=== PATIENT | female | born 1940 | race Caucasian/White ===

== ENCOUNTER 2017-03-31 22:37 | Emergency (ER) | payer OTHER ==
[~2017-03-31] VITALS: Ht 152.4 cm; Wt 44.6 kg
[~2017-03-31 22:37] MED LIST: ADVIL200 MG PO; AMLODIPINE BES2.5 MG PO; LISINOPRIL40 MG PO; METOPROLOL SUCC50 MG PO; TOPROL XL100 MG PO; TYLENOL ARTHRI650 MG PO
[2017-03-31 23:22] LABS: HEMATOCRIT 35.4 % (36.0-46.0); MCH 30.6 PG (29.0-34.0); MCHC 33.1 G/DL (30.0-36.0); MCV 92.7 FL (83-99); MEAN PLAT.VOLUME 9.6 uM^3 (9.5-12.4); PLATELET COUNT 232 K/uL (156-360); RBC DIS.WIDTH-CV 13.1 % (11.8-14.6); RED BLOOD COUNT 3.82 M/uL (3.80-5.20); WHITE BLOOD COUNT 6.3 K/uL (4.1-10.2)
[2017-03-31 23:33] LABS: CHLORIDE 105 mEq/L (99-109); POTASSIUM 3.6 mEq/L (3.7-5.4); SODIUM 136 mEq/L (136-147)
[2017-03-31 23:36] LABS: GLUCOSE 126 mg/dL (70-99)
[2017-03-31 23:37] LABS: ANION GAP 6 MEQ/L (2-14); TOTAL BILIRUBIN 0.5 mg/dL (0.0-1.0)
[2017-03-31 23:39] LABS: ALKALINE PHOSPHATASE 375 IU/L (3-129); GFR ESTIMATE (CALCULATED) > 59 mL/min/
[2017-03-31 23:40] LABS: UREA NITROGEN (BUN) 28 mg/dL (9-23)
[2017-03-31 23:42] LABS: TROP-I INTERPRETATION NEGATIVE; TROPONIN-I 0.01 ng/mL (0.0-0.30)
[2017-03-31 23:43] LABS: LIPASE 48 U/L (1.0-51.0)
[2017-04-01 00:08] LABS: ADD MIUA? YES; BILIRUBIN NEGATIVE; BLOOD LARGE; COLOR YELLOW ((YELLOW)); GLUCOSE (STRIP) NEGATIVE; KETONES NEGATIVE; LEUKOCYTES SMALL; NITRITE NEGATIVE; PROTEIN (STRIP) 100; UROBILINOGEN 0.2 MG/DL (0.2-1.0)
[2017-04-01 00:30] LABS: RED BLOOD CELLS 40-50 /HPF (0-5)
[2017-04-01 00:31] LABS: BACTERIA NONE SEEN /HPF; CRYSTALS PRESENT; EPITHELIAL CELLS 1+ /HPF; MUCUS 1+ /LPF; UCUL ADDED? NO
[2017-04-01 00:32] LABS: CALCIUM OXALATE CRYSTALS 1+ /HPF; CASTS PRESENT /LPF; HYALINE CASTS 0-5 /LPF
[2017-04-01 01:26] VITALS: BP 153/70
== END 2017-04-01 01:28 | disposition home or self-care (01) ==
LOC: EME → EDBD 22:37 → EME 04-01 01:28
PROVIDERS: Emergency Medicine
DX: E86.0 Dehydration (principal); R31.9 Hematuria, unspecified; R07.9 Chest pain, unspecified; I10 Essential (primary) hypertension; Z87.891 Personal history of nicotine dependence
CPT/HCPCS: 80053; 81003; 83690; 84484; 85027; 93005; 99281; 99285; J7030

== ENCOUNTER → 2017-06-04 | Outpatient (CLI) | payer OTHER ==
[~2017-06-04] MED LIST changes: +CARAFATE1 GM PO; +FLAGYL500 MG PO; +METOPROLOL TA37.5 MG PO; +MULTIPLE VITAM1 EACH PO; +NORVASC2.5 MG PO; +OMEPRAZOLE40 M1 PO; +PANTOPRAZOLE SO40 MG PO; +PRINIVIL10 MG PO; +REGLAN5 MG PO; +VITAMIN C1000 MG PO
== END | disposition home or self-care (01) ==
LOC: PICC 10:00
DX: M46.28 Osteomyelitis of vertebra, sacral and sacrococcygeal region (principal)
CPT/HCPCS: 76937; C1769

== ENCOUNTER → 2017-10-27 | Outpatient (CLI) | payer OTHER ==
[~2017-10-27] MED LIST changes: +LOPRESSOR25 MG PO; -METOPROLOL TA37.5 MG PO; +OXAYDO5 MG PO; +PROTONIX40 MG PO
== END | disposition home or self-care (01) ==
LOC: AMB 10:12
DX: L89.152 Pressure ulcer of sacral region, stage 2 (principal); E46 Unspecified protein-calorie malnutrition; M06.9 Rheumatoid arthritis, unspecified; M19.90 Unspecified osteoarthritis, unspecified site; K21.9 Gastro-esophageal reflux disease without esophagitis; I10 Essential (primary) hypertension; R53.81 Other malaise; Z86.19 Personal history of other infectious and parasitic diseases; Z87.19 Personal history of other diseases of the digestive system
CPT/HCPCS: 99213

== ENCOUNTER 2017-11-05 19:49 | Inpatient (IN) | payer OTHER ==
[~2017-11-05] VITALS: Ht 152.4 cm; Wt 40.9 kg
[2017-11-05 20:23] LABS: HEMOGLOBIN 13.4 G/DL (11.9-15.5); MCH 29.9 PG (29.0-34.0); MCHC 33.5 G/DL (30.0-36.0); MCV 89.3 FL (83-99); PLATELET COUNT 245 K/uL (156-360); RBC DIS.WIDTH-CV 14.2 % (11.8-14.6); RBC DIS.WIDTH-SD 46.3 % (39-53); RED BLOOD COUNT 4.48 M/uL (3.80-5.20); WHITE BLOOD COUNT 10.1 K/uL (4.1-10.2)
[2017-11-05 20:32] LABS: CHLORIDE 100 mEq/L (99-109); POTASSIUM 4.1 mEq/L (3.7-5.4); SODIUM 133 mEq/L (136-147)
[2017-11-05 20:34] LABS: GLUCOSE 105 mg/dL (70-99)
[2017-11-05 20:37] LABS: CREATININE 0.7 mg/dL (0.6-1.3); GFR ESTIMATE (CALCULATED) > 59 mL/min/
[2017-11-05 20:38] LABS: UREA NITROGEN (BUN) 25 mg/dL (9-23)
[2017-11-05 20:47] LABS: TROP-I INTERPRETATION NEGATIVE; TROPONIN-I 0.01 ng/mL (0.0-0.30)
[2017-11-05] MEDS ORDERED: AUGMENTIN875 MG PO (23:21)
[2017-11-05] MEDS ORDERED: OXYCODONE H5 MG/5 ML PO (23:26)
[2017-11-06 00:17] VITALS: BP 171/87
[2017-11-06 06:30] LABS: HEMOGLOBIN 12.5 G/DL (11.9-15.5); MCH 29.6 PG (29.0-34.0); MCHC 32.9 G/DL (30.0-36.0); PLATELET COUNT 188 K/uL (156-360); RBC DIS.WIDTH-CV 14.4 % (11.8-14.6); RBC DIS.WIDTH-SD 47.1 % (39-53); RED BLOOD COUNT 4.22 M/uL (3.80-5.20); WHITE BLOOD COUNT 6.4 K/uL (4.1-10.2)
[2017-11-06 06:56] LABS: CHLORIDE 100 MEQ/L (99-109); CREATININE 0.6 MG/DL (0.6-1.3); GFR ESTIMATE (CALCULATED) > 59 mL/min/; GLUCOSE 137 mg/dL (70-99); POTASSIUM 4.3 MEQ/L (3.7-5.4); SODIUM 135 MEQ/L (136-147); UREA NITROGEN (BUN) 20 mg/dL (9-23)
[2017-11-06 09:43] VITALS: BP 139/67
[2017-11-06 11:59] VITALS: BP 159/70
[2017-11-06 16:40] VITALS: BP 134/63
[2017-11-06 19:30] VITALS: BP 142/65
[2017-11-07] VITALS (8 sets, daily range): BP systolic 111–145; BP diastolic 54–74
[2017-11-08 03:48] VITALS: BP 151/74
[2017-11-08 07:57] VITALS: BP 136/77
[2017-11-08 11:52] VITALS: BP 137/62
[2017-11-08 15:07] VITALS: BP 123/68
[2017-11-08 19:37] VITALS: BP 115/71
[2017-11-08 23:15] VITALS: BP 124/63
[2017-11-09 03:45] VITALS: BP 152/72
[2017-11-09 07:47] VITALS: BP 138/66
[2017-11-09 11:23] VITALS: BP 127/65
[2017-11-09 15:43] VITALS: BP 134/70
[2017-11-09 19:15] VITALS: BP 110/59
[2017-11-09 23:00] VITALS: BP 145/65
[2017-11-10 03:43] VITALS: BP 145/75; BP 172/81
[2017-11-10 08:13] VITALS: BP 134/67
[2017-11-10 13:22] VITALS: BP 109/57
[2017-11-10 15:30] VITALS: BP 110/55
[2017-11-10 19:55] VITALS: BP 128/60
[2017-11-11 00:21] VITALS: BP 142/73
[2017-11-11 04:28] VITALS: BP 131/70
[2017-11-11 08:00] VITALS: BP 148/73
[2017-11-11] MEDS ORDERED: STIOLTO RESPIMAT4 GM IH (09:01)
[2017-11-11] MEDS ORDERED: PROAIR HFA8.5 GM IH (09:01)
[2017-11-11] MEDS ORDERED: PREDNISONE10 MG PO (09:01)
== END 2017-11-11 11:07 | disposition home health service (06) | DRG 190 ==
LOC: EME 19:49 → EDOF 22:59 → 5WEST 22:59 → EDOF 22:59 → ENRESERV 23:03 → EDOF 23:10 → 5WEST 23:10 → ENRESERV 23:12 → 5WEST 23:59 → ENRESERV 11-07 00:44 → CANRESERV 11-07 18:35 → ENRESERV 11-07 18:35 → ENPENDDIS 11-11 → 5WEST 11-11 11:07
PROVIDERS: Hospitalist
DX: J44.1 Chronic obstructive pulmonary disease with (acute) exacerbation (principal); J96.01 Acute respiratory failure with hypoxia; J44.0 Chronic obstructive pulmonary disease with (acute) lower respiratory infection; J20.9 Acute bronchitis, unspecified; I10 Essential (primary) hypertension; E87.1 Hypo-osmolality and hyponatremia; K21.9 Gastro-esophageal reflux disease without esophagitis; M06.9 Rheumatoid arthritis, unspecified; K25.9 Gastric ulcer, unspecified as acute or chronic, without hemorrhage or perforation; G89.29 Other chronic pain; Z87.891 Personal history of nicotine dependence; Z87.11 Personal history of peptic ulcer disease; Z79.899 Other long term (current) drug therapy; Z68.1 Body mass index [BMI] 19.9 or less, adult
CPT/HCPCS: 71046; 80048; 84484; 85027; 87502; 93005; 94640; 94640 76; 94760; 94799; 97530 GP; 99202; 99281; 99284; A6214; G0378; J0456; J2920; J7512

== ENCOUNTER 2017-11-20 12:13 | Inpatient (IN) | payer OTHER ==
[2017-11-20] VITALS (14 sets, daily range): BP systolic 89–128; BP diastolic 56–89
[~2017-11-20] VITALS: Ht 134.6 cm; Wt 45.3 kg
[~2017-11-20 12:13] MED LIST changes: +AUGMENTIN875 MG PO; +OXYCODONE H5 MG/5 ML PO; +PREDNISONE10 MG PO; +PROAIR HFA8.5 GM IH; +STIOLTO RESPIMAT4 GM IH
[2017-11-20 12:22] LABS: BASE EXCESS -1.4 mEq/L (-3 to +3); BICARBONATE 28.1 mEq/L (22-26); CARBOXY HGB 1.6 % (0-5); METHEMOGLOBIN 1.1 % (0-1.5); PCO2 67 mm Hg (35-45); PO2 230 mm Hg (80-100)
[2017-11-20 12:23] LABS: SITE RR; pH 7.23 (7.35-7.45)
[2017-11-20 12:24] LABS: COMMENTS - BLOOD GASES NAC+; DEVICE FM; O2 FLOW 7 L/MIN; TOTAL RESP RATE 28 resp/min
[2017-11-20 12:50] LABS: CHLORIDE 107 mEq/L (99-109); POTASSIUM 4.1 mEq/L (3.7-5.4); SODIUM 140 mEq/L (136-147)
[2017-11-20 12:52] LABS: GLUCOSE 103 mg/dL (70-99); PTT 24.7 SEC (25-37)
[2017-11-20 12:54] LABS: HEMATOCRIT 48.6 % (36.0-46.0); MCH 29.5 PG (29.0-34.0); MCHC 32.3 G/DL (30.0-36.0); MCV 91.4 FL (83-99); RBC DIS.WIDTH-CV 15.4 % (11.8-14.6); RBC DIS.WIDTH-SD 51.4 % (39-53); WHITE BLOOD COUNT 21.3 K/uL (4.1-10.2)
[2017-11-20 12:56] LABS: CREATININE 0.8 mg/dL (0.6-1.3); GFR ESTIMATE (CALCULATED) > 59 mL/min/; HEMOGLOBIN 15.7 G/DL (11.9-15.5); PLATELET COUNT 320 K/uL (156-360); RED BLOOD COUNT 5.32 M/uL (3.80-5.20)
[2017-11-20 12:57] LABS: UREA NITROGEN (BUN) 34 mg/dL (9-23)
[2017-11-20 13:02] LABS: TROP-I INTERPRETATION NEGATIVE; TROPONIN-I 0.03 ng/mL (0.0-0.30)
[2017-11-20 13:32] LABS: ABS NEUTROPHIL COUNT 0.7; ANISOCYTOSIS 3+; BAND NEUTROPHILS 0.5 % (0-8.0); EOSINOPHIL ABS CT 0; MACROCYTES 2+; MICROCYTOSIS 1+; OVALOCYTES 1+; PLAT.SUFFICIENCY DECREASED; POIKILOCYTOSIS 2+; TEAR DROP CELLS 1+
[2017-11-20] MEDS ORDERED: STIOLTO RESPIMAT4 GM IH (13:47)
[2017-11-20] MEDS ORDERED: PROCEL1 EACH PO (13:48)
[2017-11-20] MEDS ORDERED: PROBIOTIC1 EAC7 PO (13:49)
[2017-11-20 17:00] LABS: APPEARANCE SL.HAZY ((CLEAR)); BILIRUBIN NEGATIVE; BLOOD NEGATIVE; COLOR YELLOW ((YELLOW)); GLUCOSE (STRIP) NEGATIVE; KETONES NEGATIVE; LEUKOCYTES MODERATE; NITRITE NEGATIVE; PROTEIN (STRIP) 30; SPECIFIC GRAVITY 1.014 (1.000-1.030); UROBILINOGEN 0.2 MG/DL (0.2-1.0)
[2017-11-20 17:34] LABS: BACTERIA RARE /HPF; EPITHELIAL CELLS RARE /HPF; MUCUS TRACE /LPF; UCUL ADDED? YES; WHITE BLOOD CELLS 20-30 /HPF (0-5)
[2017-11-21] VITALS (22 sets, daily range): BP systolic 102–146; BP diastolic 62–90
[2017-11-22 02:44] VITALS: BP 128/61
[2017-11-22 08:33] VITALS: BP 164/82
[2017-11-22 10:35] VITALS: BP 143/63
[2017-11-22 14:25] VITALS: BP 120/64
[2017-11-22 19:00] VITALS: BP 127/67
[2017-11-22 22:30] VITALS: BP 125/76
[2017-11-23] VITALS (7 sets, daily range): BP systolic 110–165; BP diastolic 62–76
[2017-11-24 03:43] VITALS: BP 128/67
[2017-11-24 06:50] VITALS: BP 168/79
[2017-11-24 11:06] VITALS: BP 133/70
[2017-11-24] MEDS ORDERED: DUONEB 2.5-0.5 M3 ML AEROSOL (11:11)
[2017-11-24] MEDS ORDERED: DULERA 100 MCG/13 GM IH (11:11)
[2017-11-24] MEDS ORDERED: PREDNISONE10 MG PO (11:12)
== END 2017-11-24 12:40 | disposition home health service (06) | DRG 190 ==
LOC: EME 12:13 → 5EAST 14:12 → 4EAST 14:12 → 4WEST 14:12 → EDOF 14:12 → ENRESERV 14:13 → 4WEST 15:16 → ENRESERV 11-21 19:44 → 4EAST 11-21 22:36 → ENRESERV 11-23 16:51 → 5EAST 11-23 17:48
PROVIDERS: Emergency Medicine; Internal Medicine Critical Care Medicine
PROC: 5A0935Z Assistance with Respiratory Ventilation, Less than 24 Consecutive Hours (ICD-10-PCS; principal; 2017-11-20)
DX: J44.1 Chronic obstructive pulmonary disease with (acute) exacerbation (principal); J96.02 Acute respiratory failure with hypercapnia; L89.154 Pressure ulcer of sacral region, stage 4; R00.0 Tachycardia, unspecified; I10 Essential (primary) hypertension; K21.9 Gastro-esophageal reflux disease without esophagitis; D64.9 Anemia, unspecified; M06.9 Rheumatoid arthritis, unspecified; Z87.891 Personal history of nicotine dependence; Z86.19 Personal history of other infectious and parasitic diseases; Z68.1 Body mass index [BMI] 19.9 or less, adult; Z82.49 Family history of ischemic heart disease and other diseases of the circulatory system; Z87.11 Personal history of peptic ulcer disease; Z90.3 Acquired absence of stomach [part of]
CPT/HCPCS: 36600; 71045; 80048; 81003; 82803; 83605; 83880; 84484; 85025; 85610; 85730; 87040; 87077; 87086; 87186; 87641; 93005; 94002; 94640; 94640 76; 94644; 94760; 94799; 99202; 99281; 99285; A6214; J0171; J0456; J0696; J1644; J1650; J2920; J2930; J7120; J7512; J7644

== ENCOUNTER 2017-12-10 19:05 | Inpatient (IN) | payer OTHER ==
[~2017-12-10] VITALS: Ht 149.9 cm; Wt 40.2 kg
[~2017-12-10 19:05] MED LIST changes: +DULERA 100 MCG/13 GM IH; +DUONEB 2.5-0.5 M3 ML AEROSOL; +PROBIOTIC1 EAC7 PO; +PROCEL1 EACH PO
[2017-12-10 20:40] LABS: HEMATOCRIT 43.1 % (36.0-46.0); HEMOGLOBIN 14.4 G/DL (11.9-15.5); MCH 30.2 PG (29.0-34.0); MCHC 33.4 G/DL (30.0-36.0); MCV 90.4 FL (83-99); RBC DIS.WIDTH-CV 15.7 % (11.8-14.6); RBC DIS.WIDTH-SD 51.9 % (39-53); RED BLOOD COUNT 4.77 M/uL (3.80-5.20); WHITE BLOOD COUNT 9.7 K/uL (4.1-10.2)
[2017-12-10 20:57] LABS: CHLORIDE 106 mEq/L (99-109); POTASSIUM 3.7 mEq/L (3.7-5.4); SODIUM 145 mEq/L (136-147)
[2017-12-10 20:59] LABS: GLUCOSE 111 mg/dL (70-99)
[2017-12-10 21:03] LABS: CREATININE 0.7 mg/dL (0.6-1.3); GFR ESTIMATE (CALCULATED) > 59 mL/min/
[2017-12-10 21:04] LABS: UREA NITROGEN (BUN) 23 mg/dL (9-23)
[2017-12-10 22:08] LABS: PLAT.SUFFICIENCY ADEQUATE
[2017-12-10 22:09] LABS: PLATELET COUNT 175 K/uL (156-360)
[2017-12-10 22:14] LABS: TROP-I INTERPRETATION NEGATIVE; TROPONIN-I 0.04 ng/mL (0.0-0.30)
[2017-12-10] MEDS ORDERED: OXYCODONE H5 MG/5 ML PO (23:21)
[2017-12-10] MEDS ORDERED: FLONASE16 G1 BOTH NARES (23:22)
[2017-12-11] VITALS (7 sets, daily range): BP systolic 103–169; BP diastolic 56–104
[2017-12-11 00:40] LABS: APPEARANCE SL.HAZY ((CLEAR)); BILIRUBIN NEGATIVE; BLOOD SMALL; COLOR YELLOW ((YELLOW)); GLUCOSE (STRIP) NEGATIVE; KETONES NEGATIVE; LEUKOCYTES SMALL; NITRITE NEGATIVE; PROTEIN (STRIP) 30; SPECIFIC GRAVITY 1.018 (1.000-1.030); UROBILINOGEN 0.2 MG/DL (0.2-1.0)
[2017-12-11 00:54] LABS: BACTERIA NONE SEEN /HPF; CALCIUM OXALATE CRYSTALS 3+ /HPF; EPITHELIAL CELLS RARE /HPF; MUCUS TRACE /LPF; RED BLOOD CELLS TNTC /HPF (0-5); UCUL ADDED? YES; WHITE BLOOD CELLS 20-30 /HPF (0-5)
[2017-12-11 18:13] LABS: BICARBONATE 30.5 mEq/L (22-26); CARBOXY HGB 2.9 % (0-5); COMMENTS - BLOOD GASES C+; DEVICE NC; METHEMOGLOBIN 1.7 % (0-1.5); O2 FLOW 4 L/MIN; PCO2 47 mm Hg (35-45); PO2 62 mm Hg (80-100); SITE RR; pH 7.42 (7.35-7.45)
[2017-12-12 03:53] VITALS: BP 141/71
[2017-12-12 06:18] LABS: BASOPHIL (%) 0 % (0-1); EOSINOPHIL (%) 0 % (0-5); HEMATOCRIT 35.7 % (36.0-46.0); IMMATURE GRANULOCYTE (%) 0.3 % (0.0-0.7); LYMPHOCYTE (%) 21.4 % (15-42); LYMPHOCYTE COUNT 0.6 K/uL (1.0-2.8); MCH 30.3 PG (29.0-34.0); MCHC 33.1 G/DL (30.0-36.0); MCV 91.8 FL (83-99); NEUTROPHIL (%) 77.3 % (45-76); NEUTROPHIL COUNT 2.3 K/uL (1.8-6.4); PLATELET COUNT 124 K/uL (156-360); RBC DIS.WIDTH-SD 50.3 % (39-53); RED BLOOD COUNT 3.89 M/uL (3.80-5.20); WHITE BLOOD COUNT 2.9 K/uL (4.1-10.2)
[2017-12-12 06:27] LABS: CHLORIDE 102 MEQ/L (99-109); CREATININE 0.5 MG/DL (0.6-1.3); GFR ESTIMATE (CALCULATED) > 59 mL/min/; GLUCOSE 137 mg/dL (70-99); HEMOGLOBIN 11.8 G/DL (11.9-15.5); POTASSIUM 3.7 MEQ/L (3.7-5.4); SODIUM 140 MEQ/L (136-147); UREA NITROGEN (BUN) 14 mg/dL (9-23)
[2017-12-12 07:46] VITALS: BP 136/70
[2017-12-12 11:34] VITALS: BP 105/59
[2017-12-12 15:39] VITALS: BP 140/67
[2017-12-12 19:23] VITALS: BP 148/72
[2017-12-12 23:47] VITALS: BP 122/70
[2017-12-13 03:47] VITALS: BP 142/70
[2017-12-13 06:08] LABS: HEMATOCRIT 33.7 % (36.0-46.0); HEMOGLOBIN 11.2 G/DL (11.9-15.5); MCHC 33.2 G/DL (30.0-36.0); MCV 90.3 FL (83-99); PLATELET COUNT 140 K/uL (156-360); RBC DIS.WIDTH-CV 15.2 % (11.8-14.6); RBC DIS.WIDTH-SD 50.5 % (39-53); RED BLOOD COUNT 3.73 M/uL (3.80-5.20); WHITE BLOOD COUNT 7.8 K/uL (4.1-10.2)
[2017-12-13 06:37] LABS: CHLORIDE 103 MEQ/L (99-109); CREATININE 0.5 MG/DL (0.6-1.3); GFR ESTIMATE (CALCULATED) > 59 mL/min/; GLUCOSE 132 mg/dL (70-99); POTASSIUM 3.6 MEQ/L (3.7-5.4); SODIUM 141 MEQ/L (136-147); UREA NITROGEN (BUN) 15 mg/dL (9-23)
[2017-12-13 07:19] VITALS: BP 140/70
[2017-12-13 11:04] VITALS: BP 131/61
[2017-12-13 15:23] VITALS: BP 162/81
[2017-12-13 19:50] VITALS: BP 137/78
[2017-12-14 00:25] VITALS: BP 139/78
[2017-12-14 04:01] VITALS: BP 136/68
[2017-12-14] MEDS ORDERED: AMOX TR-K CLV1 EAC4 PO (07:29)
[2017-12-14 07:48] VITALS: BP 155/74
[2017-12-14] MEDS ORDERED: PREDNISONE20 MG PO (07:49)
[2017-12-14] MEDS ORDERED: MEDROL DOSEPAK4 MG PO (07:50)
[2017-12-14] MEDS ORDERED: DULERA 100 MCG/13 GM IH (07:51)
== END 2017-12-14 13:30 | disposition home health service (06) | DRG 193 ==
LOC: EME 19:05 → EDOF 23:40 → 5SOUTH 23:40 → ENRESERV 23:43 → 5SOUTH 12-11 00:50 → ENPENDDIS 12-14 12:38 → 5SOUTH 12-14 13:30
PROVIDERS: Internal Medicine; Internal Medicine Pulmonary Disease; Physician Assistant Medical
DX: J18.9 Pneumonia, unspecified organism (principal); Y95 Nosocomial condition; J44.0 Chronic obstructive pulmonary disease with (acute) lower respiratory infection; J44.1 Chronic obstructive pulmonary disease with (acute) exacerbation; J96.11 Chronic respiratory failure with hypoxia; Z99.81 Dependence on supplemental oxygen; R04.2 Hemoptysis; R04.0 Epistaxis; R13.10 Dysphagia, unspecified; Z68.1 Body mass index [BMI] 19.9 or less, adult; L89.154 Pressure ulcer of sacral region, stage 4; J90 Pleural effusion, not elsewhere classified; I44.7 Left bundle-branch block, unspecified; D64.9 Anemia, unspecified; G89.29 Other chronic pain; I10 Essential (primary) hypertension; M20.42 Other hammer toe(s) (acquired), left foot; M20.41 Other hammer toe(s) (acquired), right foot; K21.9 Gastro-esophageal reflux disease without esophagitis; M06.9 Rheumatoid arthritis, unspecified; H53.8 Other visual disturbances; R00.0 Tachycardia, unspecified; F41.9 Anxiety disorder, unspecified; Z82.49 Family history of ischemic heart disease and other diseases of the circulatory system; Z87.11 Personal history of peptic ulcer disease; Z87.891 Personal history of nicotine dependence; Z90.3 Acquired absence of stomach [part of]
CPT/HCPCS: 36600; 71045; 71046; 80048; 81003; 82803; 83605; 84134; 84484; 85025; 85027; 87040; 87070; 87086; 87205; 87449; 87502; 87641; 93005; 94640; 94799; 99202; 99281; 99285; J0456; J1644; J2543; J2920; J2930; J7030; J7050